=== PATIENT | female | born 1950 | race Two or more races ===

== ENCOUNTER 2016-07-25 10:23 | Emergency (ER) | payer MEDICARE, OTHER ==
[2016-07-25 11:24] LABS: ABSOLUTE NEUTROPHIL COUNT 6.5 K/mm3 (1.8-7.7); BASO # 0.1 K/mm3 (0.0-0.2); BASO % 0.7 % (0.2-1.0); EOS # 0.1 (0.0-0.5); HEMATOCRIT 40.6 % (37.0-47.0); HEMOGLOBIN 13.9 gm/l (12.0-16.0); IMM NEUT% 0.4 % (0-1); LYMPH # 2.2 (1.0-4.8); LYMPH % 22.8 % (15-45); MEAN CELL VOLUME 92.7 fl (81.0-99.0); MEAN CORPUSCULAR HEMOGLOBIN 31.7 pg (27.0-31.0); MEAN CORPUSCULAR HGB CONC 34.2 g/dl (33.0-37.0); MONO # 0.8 (0.0-0.8); MONO % 8.3 % (4-12); NEUT % 66.8 % (43-75); PLATELET COUNT 308 K/mm3 (130-400); RED CELL DISTRIBUTION WIDTH 12.2 % (11.5-14.5)
[2016-07-25 11:25] LABS: URINE BILIRUBIN NEGATIVE (NEGATIVE); URINE BLOOD NEGATIVE (NEGATIVE); URINE GLUCOSE (UA) NEGATIVE (NEGATIVE); URINE LEUKOCYTE ESTERASE TRACE (NEGATIVE); URINE NITRITE NEGATIVE (NEGATIVE); URINE PROTEIN 1+ (NEGATIVE); URINE UROBILINOGEN NORMAL (0-1 mg/dl)
[2016-07-25 11:28] LABS: URINE APPEARANCE HAZY; URINE COLOR YELLOW
[2016-07-25 11:34] LABS: CALCIUM 9.2 mg/dL (8.6-10.3)
[2016-07-25 11:41] LABS: URINE BACTERIA FEW; URINE RBC 0-1 /hpf; URINE WBC 0-2 /hpf
[2016-07-25] MEDS ORDERED: PREDNISONE 20 MG TABLET ONE (13:19)
== END 2016-07-25 13:57 | disposition home or self-care (01) ==
LOC: ED 10:23
DX: G44.89 Other headache syndrome (principal); M54.2 Cervicalgia; R73.03 Prediabetes; I10 Essential (primary) hypertension